=== PATIENT | female | born 1980 | race Caucasian/White ===

== ENCOUNTER → 2023-12-31 | Emergency (ER) | payer SELFPAY ==
--- NOTE | 2023-12-31 17:28 | RAD REPORT ---
EXAM DESCRIPTION: Vick Mack (2 Views)12/31/2023 5:11 pm CLINICAL HISTORY: Cough COMPARISON: None FINDINGS: The lungs appear clear of acute infiltrate. The heart is normal size IMPRESSION: No acute abnormalities displayed
[2023-12-31 17:56] LABS: SARS-CoV-2 Antigen Rapid Res Negative (Negative)
--- NOTE | 2023-12-31 19:05 | ER ---
Nurse's Notes [facility] Name: Natalie Mcdonald Age: 43 yrs Sex: Female : 1980 Arrival Date: 12/31/2023 Time: 15:59 Bed IW3 Private MD: Diagnosis: Cough;Otitis media, unspecified, left ear;Acute sinusitis, unspecified Presentation: 12/30 17:23 Coronavirus screen: Vaccine status: Patient reports being unvaccinated. Ebola Screen: kd3 No symptoms or risks identified at this time. Initial Sepsis Screen: Does the patient meet any 2 criteria? No. Patient's initial sepsis screen is negative. Does the patient have a suspected source of infection? No. Patient's initial sepsis screen is negative. Risk Assessment: Do you want to hurt yourself or someone else? Patient reports no desire to harm self or others. Onset of symptoms was December 31, 2023. 17:23 Method Of Arrival: Ambulatory kd3 17:23 Acuity: CAESAR 4 kd3 17:27 Chief complaint: Patient states: I have been sick with congestion and cough for a kd3 couple of days. Triage Assessment: 17:23 General: Appears in no apparent distress. Behavior is calm, cooperative. Pain: Denies kd3 pain. Respiratory: Breath sounds are clear bilaterally. Historical: - Allergies: 17:23 No Known Allergies; kd3 - Immunization history:: Adult Immunizations up to date. - Social history:: Smoking status: Patient reports the use of cigarette tobacco products. Screenin:29 [facility] ED Fall Risk Assessment (Adult) History of falling in the last 3 months, kd3 including since admission No falls in past 3 months (0 pts) Confusion or Disorientation No (0 pts) Intoxicated or Sedated No (0 pts) Impaired Gait No (0 pts) Mobility Assist Device Used No (0 pt) Altered Elimination No (0 pt) Score/Fall Risk Level 0 - 2 = Low Risk Oriented to surroundings. Abuse screen: Denies threats or abuse. Denies injuries from another. Nutritional screening: No deficits noted. Tuberculosis screening: No symptoms or risk factors identified. Assessment: 17:07 General: called 2 times for triage. No answer. . kd3 19:30 Cardiovascular: Capillary refill < 3 seconds. Respiratory: Airway is patent Trachea kd3 midline Respiratory effort is even, unlabored, Respiratory pattern is regular, symmetrical. Vital Signs: 17:19 Pulse 65; Resp 17; Temp 98.3; Pulse Ox 100% ; Weight 74.84 kg; Height 5 ft. 2 in. ; kd3 17:19 BP 130 / 95; kd3 17:19 Body Mass Index 30.18 (74.84 kg, 157.48 cm) kd3 ED Course: 16:00 Patient arrived in ED. rg4 16:05 Baudilio Meyer PA is PHCP. cp 16:05 Junaid Ramirez MD is Attending Physician. cp 17:13 XRAY Chest Pa And Lat (2 Views) In Process Unspecified. EDMS 17:23 Triage completed. kd3 17:23 Arm band placed on right wrist. kd3 17:27 SARS RAPID Sent. kd3 17:27 Strep Sent. kd3 17:27 Influenza Screen (a \T\ B) Sent. kd3 19:30 Patient has correct armband on for positive identification. Provided Education on: kd3 medications . 19:30 No provider procedures requiring assistance completed. Patient did not have IV access kd3 during this emergency room visit. Administered Medications: No medications were administered Medication: 19:30 VIS not applicable for this client. kd3 Outcome: 19:05 Discharge ordered by MD. cp 19:30 Discharged to home ambulatory, kd3 19:30 Condition: stable 19:30 Discharge instructions given to patient, Instructed on discharge instructions, follow up and referral plans. medication usage, Demonstrated understanding of instructions, follow-up care, medications, Prescriptions given X 3, 19:31 Patient left the ED. kd3 Signatures: Dispatcher [employer] [facility] Baudilio Meyer PA PA cp Garcia, Rubi rg4 Tracey Hernandes, RN RN kd3
--- NOTE | 2023-12-31 19:05 | EDPHYS ---
Physician Documentation [facility] Name: Natalie Mcdonald Age: 43 yrs Sex: Female : 1980 Arrival Date: 12/31/2023 Time: 15:59 Bed IW3 Private MD: ED Physician Junaid Ramirez HPI: 12/30 17:00 This 43 yrs old Female presents to ER via Ambulatory with complaints of Congestion. cp 17:00 The patient or guardian reports cough, that is intermittent, with no sputum. cp 17:00 Onset: The symptoms/episode began/occurred 3 day(s) ago. Associated signs and symptoms: cp Pertinent positives: earache, sore throat, Pertinent negatives: diarrhea, vomiting. Severity of symptoms: in the emergency department the symptoms are unchanged despite home interventions. Historical: - Allergies: 17:23 No Known Allergies; kd3 - Immunization history:: Adult Immunizations up to date. - Social history:: Smoking status: Patient reports the use of cigarette tobacco products. ROS: 17:05 Constitutional: Negative for body aches, fever, poor PO intake, cp 17:05 Eyes: Negative for injury, pain, redness, and discharge, cp 17:05 ENT: Positive for ear pain, sinus congestion, sore throat, Negative for drainage from ear(s), difficulty swallowing, difficulty handling secretions, 17:05 Cardiovascular: Negative for chest pain, 17:05 Respiratory: Positive for cough, Negative for shortness of breath, wheezing, 17:05 Abdomen/GI: Negative for vomiting, diarrhea, constipation, 17:05 All other systems are negative, Exam: 17:10 Constitutional: The patient appears in no acute distress, alert, awake, non-toxic, well cp developed, well nourished, 17:10 Head/face: Noted is tenderness, that is mild, of the right cheek and left cheek, cp 17:10 Eyes: Periorbital structures: appear normal, Conjunctiva: normal, no chemosis, Sclera: no appreciated abnormality, Lids and lashes: appear normal, bilaterally, 17:10 ENT: External ear(s): are unremarkable, Ear canal(s): are normal, clear, TM's: erythema, that is mild, on the left, Nose: nasal drainage, is not appreciated, Mouth: Lips: moist, Oral mucosa: pink and intact, moist, 17:10 Neck: ROM/movement: Meningeal signs: are not present, nuchal rigidity, is not cp appreciated, Lymph nodes: no appreciated lymphadenopathy, 17:10 Chest/axilla: Inspection: normal, 17:10 Cardiovascular: Rate: normal, Rhythm: regular, 17:10 Respiratory: the patient does not display signs of respiratory distress, Respirations: normal, no use of accessory muscles, no retractions, labored breathing, is not present, Breath sounds: decreased breath sounds, are not appreciated, stridor, is not appreciated, + upper airway congestion. 17:10 Abdomen/GI: Exam negative for discomfort, distension, guarding, Inspection: abdomen appears normal, 17:10 Skin: no rash present. Vital Signs: 17:19 Pulse 65; Resp 17; Temp 98.3; Pulse Ox 100% ; Weight 74.84 kg; Height 5 ft. 2 in. ; kd3 17:19 BP 130 / 95; kd3 17:19 Body Mass Index 30.18 (74.84 kg, 157.48 cm) kd3 MDM: 17:31 Patient medically screened. cp 18:00 Differential diagnosis: bronchitis, flu, URI, strep throat. cp 19:03 Data reviewed: vital signs, nurses notes, lab test result(s), radiologic studies, plain cp films, and as a result, I will discharge patient. 19:04 Counseling: I had a detailed discussion with the patient and/or guardian regarding the cp historical points, exam findings, and any diagnostic results supporting the discharge/admit diagnosis, lab results, radiology results, to return to the emergency department if symptoms worsen or persist or if there are any questions or concerns that arise at home. 12/30 16:52 Order name: Strep cp 12/30 16:52 Order name: SARS RAPID; Complete Time: 19:03 cp 12/30 16:52 Order name: Influenza Screen (a \T\ B); Complete Time: 19:03 cp 12/30 18:11 Order name: Throat Culture EDMS 12/30 16:52 Order name: XRAY Chest Pa And Lat (2 Views); Complete Time: 19:03 cp Administered Medications: No medications were administered Disposition Summary: 12/31/23 19:05 Discharge Ordered Notes: Location: Home cp Problem: new cp Symptoms: are unchanged cp Condition: Stable cp Diagnosis - Cough cp - Otitis media, unspecified, left ear cp - Acute sinusitis, unspecified cp Followup: cp - With: Private Physician - When: 2 - 3 days - Reason: Worsening of condition Discharge Instructions: - Discharge Summary Sheet cp - Otitis Media, Adult cp - Sinusitis, Adult cp - Cough, Adult cp Forms: - Medication Reconciliation Form cp - Thank You Letter cp - Antibiotic Education cp - Prescription Opioid Use cp - Patient Portal Instructions cp - Leadership Thank You Letter cp - Work release form kd3 Prescriptions: - Bromfed DM 2-30-10 mg/5 mL Oral syrup - administer 10 milliliter ORAL route 4 times per day as needed for cold cp symptoms; 240 milliliter; Refills: 0, Product Selection Permitted - Flonase Sensimist 27.5 mcg/actuation Nasal spray, suspension - spray 1 spray INTRANASAL route daily as needed for nasal congestion; into each cp nostril; 1 unit; Refills: 0, Product Selection Permitted - Amoxicillin 875 mg Oral Tablet - take 1 tablet ORAL route every 12 hours for 10 days; 20 tablet; Refills: 0, cp Product Selection Permitted Addendum: 01/02/2024 07:58 I was immediately available for consultation during this patient's visit. I did not e c2 personally see the patient or discuss the patient with the CARLOS. . Signatures: Dispatcher [employer] [facility] Baudilio Meyer PA PA cp Doucette, Kyli RN RN kd3 Junaid Ramirez MD MD ec2 Corrections: (The following items were deleted from the chart) 12/31 18:40 12/30 17:10 ENT: External ear(s): are unremarkable, Ear canal(s): are normal, clear, cp TM's: cp
[2023-12-31 19:51] VITALS: BP 130/95; TEMP 98.3; O2SAT 100
== END ==
LOC: ER 15:59
DX: J01.90 Acute sinusitis, unspecified (principal); H66.92 Otitis media, unspecified, left ear; Z11.52 Encounter for screening for COVID-19
CPT/HCPCS: 36415; 71046; 87070; 87081; 87804; 87811; 99283